=== PATIENT | female | born 1960 | race Caucasian/White ===

== ENCOUNTER 2017-05-09 16:11 | Emergency (ER) | payer BC ==
[~2017-05-09] VITALS: Ht 170.2 cm; Wt 93.9 kg
[2017-05-09] MEDS ORDERED: SODIUM CHLORIDE 0.9% 1,000 ML IV ONE (16:46)
[2017-05-09] MEDS ORDERED: ASPIRIN 81 MG TABLET CHEW ONE (16:58)
[2017-05-09] MEDS ORDERED: ASPIRIN 81 MG TABLET CHEW PO ONE (17:00)
[2017-05-09] MEDS ORDERED: SODIUM CHLORIDE FLUSH 10ML SYR IVF ONE (17:00)
[2017-05-09 17:08] LABS: HEMATOCRIT 42.9 % (34.6-47.8); HEMOGLOBIN 14.8 g/dL (11.7-16.4); WHITE BLOOD COUNT 8.6 x10^3/uL (3.4-10)
[2017-05-09 17:12] LABS: BLOOD UREA NITROGEN 15 mg/dL (7-18)
[2017-05-09 17:22] LABS: IS PT STATUS REG ER OR PRE ER? YES
[2017-05-09 19:35] VITALS: BP 142/82
== END 2017-05-09 20:11 | disposition home or self-care (01) ==
LOC: ED 19:24
DX: R10.11 Right upper quadrant pain (principal); R07.89 Other chest pain; R55 Syncope and collapse; I10 Essential (primary) hypertension
CPT/HCPCS: 36415; 71010; 76700; 80048; 80076; 82040; 83690; 84484; 85025; 93005; 96360; 96361; 99285; J7030

== ENCOUNTER 2020-08-20 07:37 | Day surgery (SDC) | payer BC ==
[~2020-08-20] VITALS: Ht 170.2 cm; Wt 95.2 kg
[2020-08-20] MEDS ORDERED: HYDROcodone/APAP 7.5-325MG/15ML UDC PO PRN (09:30)
[2020-08-20] MEDS ORDERED: PLEASE ENTER HEIGHT AND WEIGHT MC SCH (09:30)
[2020-08-20] MEDS ORDERED: KETOROLAC 30 MG/1 ML IVPush PRN (09:30)
[2020-08-20] MEDS ORDERED: PROMETHAZINE 25 MG/ML, 1ML IVPush PRN (09:30)
[2020-08-20] MEDS ORDERED: CHLORHEXIDINE 15 ML UDC MM ONE (09:30)
[2020-08-20 09:38] VITALS: BP 117/78
[2020-08-20] MEDS ORDERED: atorvastatin PO (09:50)
[2020-08-20] MEDS ORDERED: OXYC5CAP2 PO (09:50)
[2020-08-20] MEDS ORDERED: TRAM50TA2 PO (09:50)
[2020-08-20] MEDS ORDERED: MELO15TA24 PO (09:50)
[2020-08-20] MEDS ORDERED: CHLO25TA PO (09:50)
[2020-08-20] MEDS ORDERED: LOSA100T14 PO (09:50)
[2020-08-20] MEDS ORDERED: albuterol INH (09:50)
[2020-08-20] MEDS ORDERED: AMLO-211 PO (09:50)
[2020-08-20] MEDS ORDERED: LACTATED RINGERS 1,000 ML IV SCH (10:00)
[2020-08-20] MEDS ORDERED: FENTANYL PF 100 MCG/2ML ONE ×3 (10:06→11:55)
[2020-08-20] MEDS ORDERED: MIDAZOLAM 1 MG/ML, 2ML ONE (10:06)
[2020-08-20 10:12] LABS: ALANINE AMINOTRANSFERASE 21 U/L (12-78); ANION GAP 10 mmol/L (5-15); CALCIUM 9.7 mg/dL (8.5-10.1); CHLORIDE 101 mmol/L (98-107); CREATININE 0.78 mg/dL (0.55-1.02)
[2020-08-20 10:14] LABS: ALKALINE PHOSPHATASE 93 U/L (45-117); BILIRUBIN,TOTAL 0.7 mg/dL (0.2-1.0); TOTAL PROTEIN 7.8 g/dL (6.4-8.2)
[2020-08-20] MEDS ORDERED: EPINEPHRINE 1 MG/ML, 1ML ONE (10:22)
[2020-08-20] MEDS ORDERED: BUPIVACAINE/PF 0.5% ONE (10:22)
[2020-08-20] MEDS ORDERED: DEXAMETHASONE 4 MG/ML, 1ML ONE (10:40)
[2020-08-20] MEDS ORDERED: PROPOFOL 10 MG/ML, 20ML ONE (10:40)
[2020-08-20] MEDS ORDERED: CEFAZOLIN 1,000 MG ONE (10:40)
[2020-08-20] MEDS ORDERED: ONDANSETRON 2MG/ML, 2ML ONE (10:40)
[2020-08-20] MEDS ORDERED: BUPIVACAINE/PF-EPI 0.5% 1:200K INFIL ONE (10:57)
[2020-08-20] MEDS ORDERED: HYDROmorphone 2 MG/ML, 1ML ONE (11:37)
[2020-08-20] MEDS ORDERED: OXYcodone 5 MG/5 ML ORAL.SOL UDC ONE (11:37)
[2020-08-20] MEDS: FENTANYL PF 100 MCG/2ML IV PRN ×4 (11:39→12:13)
[2020-08-20] MEDS: OXYcodone 5 MG/5 ML ORAL.SOL UDC PO PRN ×2 (11:48→14:53)
[2020-08-20] MEDS: HYDROmorphone 1 MG/ML, 1ML INJ IVPush PRN ×4 (11:53→12:13)
[2020-08-20] MEDS ORDERED: KETOROLAC 30 MG/1 ML ONE (11:55)
== END 2020-08-20 15:15 | disposition home or self-care (01) ==
LOC: OUT 07:37
PROVIDERS: ATTEND Orthopaedic Surgery
DX: S93.324A Dislocation of tarsometatarsal joint of right foot, initial encounter (principal); I10 Essential (primary) hypertension; Z20.828 Contact with and (suspected) exposure to other viral communicable diseases; Z79.899 Other long term (current) drug therapy; Z88.5 Allergy status to narcotic agent; Z88.8 Allergy status to other drugs, medicaments and biological substances; W18.39XA Other fall on same level, initial encounter; Y93.89 Activity, other specified; Y92.89 Other specified places as the place of occurrence of the external cause; Y99.8 Other external cause status
CPT/HCPCS: 28606; 28615; 36415; 73620; 80053; 87635; 93005; 97161; C1713; J0171; J0690; J1100; J1170; J1885; J2250; J2405; J2704; J3010; 76000